=== PATIENT | female | born 1995 | race Hispanic/Latino ===

== ENCOUNTER 2020-04-05 16:11 | Emergency (ER) | payer OTHER ==
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
--- OUTSIDE RECORDS SUMMARY | 2020-04-05 16:14 | XMS REPORT | Clinical Summary ---
:1995 Author Organization [facility] Address [address] [place] [address] Care Team Providers Name Role Phone Asked, No Pcp Primary Care Provider Unavailable Allergies Active Allergy Reactions Severity Noted Date Comments Doxycycline Anaphylaxis High 01/26/2019 Numbs all extre mities Azithromycin Anaphylaxis High 01/26/2019 Medications Medication Sig Dispensed Refills Start End Date Status Date hydroxychloroquine TK 1 T PO BID 2 Active (PLAQUENIL) 200 mg 9 tablet brompheniramine-pseudo TAKE 2 0 0 Discontinued eph-DM 2-30-10 mg/5 mL TEASPOONS BY 9 19 (Therapy syrup MOUTH THREE complete d) TIMES DAILY NEEDED dextroamphetamine-amph TK 1 T PO QD 0 Discontinued etamine (ADDERALL) 20 9 19 (Therapy mg tablet completed) diclofenac (VOLTAREN) TK 1 T PO BID 0 03/29 Discontinued 75 MG EC tablet WC 9 19 (The rapy completed) amoxicillin-pot Take 1 tablet 0 04/15/20 Discontinued clavulanate by mouth 2 9 19 (Therap y (AUGMENTIN) 875-125 mg (two) times a completed) per tablet day. Active Problems Problem Noted Date Wrist tendonitis 01/26/2019 Encounters Date Type Specialty Care Team Description 05/26/2019 Office Visit Orthopedic Surgery Ravi Cancino Trigger finger, right index finger (Primary Dx); MD Carlyn Right wrist dean n; Right hand pain 04/27/2019 Office Visit Orthopedic Surgery Ravi Cancino Wrist te danielle Alcocer MD (Primary Dx) 04/15/2019 Surgery Orthopedic Surgery Ravi Cancino RIGHT WR IST MD Carlyn ARTHROSCOPY ECU DECOMPRESSION W ITH RECONSTRUCTION OF SHEATH 6TH EXTE NSOR DORSAL COMPARTM ENT AND ANY INDICATED PROCEDURES 04/15/2019 Anesthesia Event Orthopedic Surgery Michael Morris MD 04/15/2019 Hospital Encounter Orthopedic Surgery Ravi Cancino MD after 04/05/2019 Family History Medical History Relation Name Comments Alcohol abuse Father Hypertension Father Relation Name Status Comments Father Social History Tobacco Use Types Packs/Day Years Used Date Never Smoker Smokeless Tobacco: Never Used Alcohol Use Drinks/Week oz/Week Comments Yes occassionally, s ocially standard drinks Sex Assigned at Date Recorded Not on file Job Start Date Occupation Industry Not on file Not on file Not on file Travel History Travel Start Travel End No recent travel history available. Last Filed Vital Signs Vital Sign Reading Time Taken Comments Blood Pressure 102/61 04/15/2019 4:20 PM CDT Pulse 79 04/15/2019 4:20 PM CDT Temperature 36.7 C (98 F) 04/15/2019 4:50 PM CDT Respiratory Rate 16 04/15/2019 4:20 PM CDT Oxygen Saturation 100% 04/15/2019 4:20 PM CDT Inhaled Oxygen Concentration - - Weight 72 kg (158 lb 11.2 oz) 04/15/2019 11:15 AM CDT Height 160 cm (5' 3") 04/15/2019 11:15 AM CDT Body Mass Index 28.11 04/15/2019 11:15 AM CDT Plan of Treatment Health Maintenance Due Date Last Done Comments CERVICAL CANCER SCREENING 2015 INFLUENZA VACCINE 04/29/2020 Procedures Procedure Name Priority Date/Time Associated Comments Diagnosis XR WRIST 3+ VW RIGHT Routine 05/26/2019 1:11 Right wrist pain Results for this PM CDT procedure are i n the results section. NH INJECT TENDON Routine 05/26/2019 12:45 Trigger finger, Resu lts for this SHEATH/LIGAMENT PM CDT right index fing er procedure are in Right hand pain the results section. NH AN ELECTIVE Routine 04/15/2019 12:54 SUPRAGLOTTIC AIRWAY PM CDT Procedure Note - Francisco Carr CRNA - 04/15/2019 12:54 PM CDT Airway Date/Time: 04/15/2019 12:46 P M Performed by: Francisco Carr CRNA Authorized by: Kevin Morris MD Location: OR Urgency: Elective Difficult Airway: No Anesthesiologist: Michael Morris MD Resident/ETHYLBENZENE CONVERTER HELPER/AA: Wilner Carr CRNA Other Anesthesia Staff: Michael Vanegas Performed by: other anesthesia staff Preoxygenated with 100% O2: Yes C-spine Precautions Maintain ed Throughout: Yes Mask Ventilation: Not attem pted Final Airway Type: Supraglo ttic airway Final LMA: I-Gel LMA Size: 4 Number of Attempts at Approa ch: 1 ARTHROSCOPY, WRIST 04/15/2019 12:39 Oth specific joint PM CDT derangements of right wrist, NEC Disorder of ligament of right wrist POC , URINE Routine 04/15/2019 11:19 Res ults for this AM CDT procedure are i n the results section. after 04/05/2019 Results XR Wrist 3+ Vw Right (05/26/2019 1:11 PM CDT) Specimen Narrative Performed At This result has an attachment that is no t available. 3 views Rt wrist in good penetrance and quality with out any acute obvious [facility] fractures, dislocations or calcifications unless HPI s tates otherwise. Performing Organization Address City[facility]State[facility] Phone Number [facility] [address] [place] [address] Hand/Upper Extremity Injection/Arthrocentesis: R small finger, R small A1 (05/26/2019 12:45 PM CDT) Narrative Performed At Ravi Cancino MD 05/26/2019 4 :21 PM Hand/Upper Extremity Injection/Arthrocentesis: R small finger, R small A1 Date/Time: 05/26/2019 2:34 PM Consent given by: patient Supporting Documentation Indications: pain Procedure Details Condition: trigger finger Site: R small finger Location: - R small A1 Right side: Needle size: 25 G Approach: anterior Right small finger medications administe red: 1 mL lidocaine 10 mg/mL (1 %); 6 mg betamethasone acetate & sodium phosphate 6 mg/mL Patient tolerance: patient tolerated the procedure wel l with no immediate complications Injection Type: tendon sheath POC , urine (04/15/2019 11:19 AM CDT) Pathologist Sig nature test urine, POC Negative QC done Yes Specimen Urine after 04/05/2019
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
[2020-04-05] MEDS ORDERED: NA CHLORIDE 0.9% 1,000 ML ONE (19:54)
[2020-04-05 20:19] LABS: Absolute Lymphocytes (CBC) 2.6 K/uL (0.7-4.9); Basophils % 0.7 % (0-1.3); Lymphocytes % 33.1 % (15.3-44.8); MPV 9.5 fL (7.6-11.3); RBC Red Blood Cell Count 5.09 M/uL (3.86-4.86)
[2020-04-05 20:23] LABS: Urine Blood NEGATIVE (NEG); Urine Glucose NEGATIVE (NEG); Urine Protein NEGATIVE (NEG); Urine Specific Gravity >1.030 (1.005-1.030)
[2020-04-05 20:30] LABS: Albumin 4.2 g/dL (3.4-5.0); Bilirubin Total 0.3 mg/dL (0.2-1.0); Potassium 4.1 mmol/L (3.5-5.1); Protein, Total 8.1 g/dL (6.4-8.2)
[2020-04-05] MEDS ORDERED: DIPHENHYDRAMINE 50 MG/ML VIAL ONE (20:49)
[2020-04-05] MEDS ORDERED: KETOROLAC 30 MG/ML INJ ONE (20:49)
[2020-04-05] MEDS ORDERED: METOCLOPRAMIDE 10 MG/2mL INJ ONE (20:49)
--- NOTE | 2020-04-05 20:49 | RAD REPORT ---
EXAM DESCRIPTION: CT - Head Brain Wo Cont - 04/05/2020 8:28 pm CLINICAL HISTORY: HEADACHE COMPARISON: No comparisons TECHNIQUE: Axial 5 mm thick images of the head were obtained without IV contrast. All CT scans are performed using dose optimization technique as appropriate and may include automated exposure control or mA/KV adjustment according to patient size. FINDINGS: No intracranial hemorrhage, mass, edema or shift of mid-line structures. No acute infarcti on changes seen. No abnormal extra-axial fluid collections. Ventricles are narrow ball within normal limits. Basilar cisterns are still identifiable. Mastoid air cells and visualized portions of the paranasal sinuses are clear. No acute bony findings. IMPRESSION: Negative non-contrast CT head examination.
--- NOTE | 2020-04-05 23:15 | EDPHYS ---
Physician Documentation [facility] Name: Tammy Sanchez Age: 25 yrs Sex: Female : 1995 Arrival Date: 04/05/2020 Time: 16:13 Bed 8 Private MD: Cas Chaparro ED Physician Dewayne Abbasi HPI: 04/05 20:17 This 25 yrs old Female presents to ER via Ambulatory with complaints of janes Headache > 24hrs Old, Fever, Nausea/Vomiting/Diarrhea. 20:17 The patient complains of pain to the left side of the back of head, left occipital janes area, left base of the skull, right side of the back of head, right occipital area and right base of the skull. The patient describes the headache as aching, a pressure. Onset: The symptoms/episode began/occurred 3 day(s) ago. Associated signs and symptoms: Pertinent positives: nausea, diarrhea. Severity of symptoms: At its worst the pain was moderate, in the emergency department the pain is unchanged. Headache History: Denies prior headaches. The symptoms are alleviated by remaining still. The patient has not experienced similar symptoms in the past. 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 - Social history:: Smoking status: Patient denies any tobacco usage or history of. - Family history:: not pertinent. ROS: 20:17 Constitutional: Negative for fever, chills, and weight loss, Eyes: Negative for injury, janes pain, redness, and discharge, ENT: Negative for injury, pain, and discharge, Neck: Negative for injury, pain, and swelling, Cardiovascular: Negative for chest pain, palpitations, and edema, Respiratory: Negative for shortness of breath, cough, wheezing, and pleuritic chest pain, Back: Negative for injury and pain, : Negative for injury, bleeding, discharge, and swelling, MS/Extremity: Negative for injury and deformity, Skin: Negative for injury, rash, and discoloration, Psych: Negative for depression, anxiety, suicide ideation, homicidal ideation, and hallucinations, Allergy/Immunology: Negative for hives, rash, and allergies, Endocrine: Negative for neck swelling, polydipsia, polyuria, polyphagia, and marked weight changes, Hematologic/Lymphatic: Negative for swollen nodes, abnormal bleeding, and unusual bruising. 20:17 Abdomen/GI: Positive for abdominal pain, diarrhea, of the epigastric area. 20:17 Neuro: Positive for headache, weakness. Exam: 20:20 Constitutional: This is a well developed, well nourished patient who is awake, alert, janes and in no acute distress. Head/Face: Normocephalic, atraumatic. Eyes: Pupils equal round and reactive to light, extra-ocular motions intact. Lids and lashes normal. Conjunctiva and sclera are non-icteric and not injected. Cornea within normal limits. Periorbital areas with no swelling, redness, or edema. ENT: Nares patent. No nasal discharge, no septal abnormalities noted. Tympanic membranes are normal and external auditory canals are clear. Oropharynx with no redness, swelling, or masses, exudates, or evidence of obstruction, uvula midline. Mucous membranes moist. Neck: Trachea midline, no thyromegaly or masses palpated, and no cervical lymphadenopathy. Supple, full range of motion without nuchal rigidity, or vertebral point tenderness. No Meningismus. Chest/axilla: Normal chest wall appearance and motion. Nontender with no deformity. No lesions are appreciated. Cardiovascular: Regular rate and rhythm with a normal S1 and S2. No gallops, murmurs, or rubs. Normal PMI, no JVD. No pulse deficits. Respiratory: Lungs have equal breath sounds bilaterally, clear to auscultation and percussion. No rales, rhonchi or wheezes noted. No increased work of breathing, no retractions or nasal flaring. Back: No spinal tenderness. No costovertebral tenderness. Full range of motion. Skin: Warm, dry with normal turgor. Normal color with no rashes, no lesions, and no evidence of cellulitis. MS/ Extremity: Pulses equal, no cyanosis. Neurovascular intact. Full, normal range of motion. Neuro: Awake and alert, GCS 15, oriented to person, place, time, and situation. Cranial nerves II-XII grossly intact. Motor strength 5/5 in all extremities. Sensory grossly intact. Cerebellar exam normal. Normal gait. Psych: Awake, alert, with orientation to person, place and time. Behavior, mood, and affect are within normal limits. 20:20 Neck: External neck: is normal, no acute changes, C-spine: appears grossly normal, no acute changes, Thyroid: appears normal, no acute changes, Trachea: is midline with no obvious abnormalities, no acute changes, ROM/movement: is normal, no acute changes, Lymph nodes: no appreciated lymphadenopathy. 20:20 Abdomen/GI: Inspection: abdomen appears normal, Bowel sounds: normal, active, all quadrants, Palpation: mild abdominal tenderness, in the epigastric area, Liver: no appreciated palpable abnormalities, Hernia: not appreciated. Vital Signs: 16:31 BP 122 / 83; Pulse 86; Resp 16; Temp 98.3(TE); Pulse Ox 100% on R/A; Weight 74.84 kg; ss Height 5 ft. 3 in. (160.02 cm); Pain 5/10; 21:00 BP 121 / 75; Pulse 82; Resp 18; Pulse Ox 99% on R/A; wh 22:20 BP 122 / 70; Pulse 87; Resp 18; Temp 97.7; Pulse Ox 100% on R/A; sg 16:31 Body Mass Index 29.23 (74.84 kg, 160.02 cm) Demetris Coma Score: 21:16 Eye Response: spontaneous(4). Verbal Response: oriented(5). Motor Response: obeys [facility] commands(6). Total: 15. MDM: 19:29 Patient medically screened. [facility] 20:21 Data reviewed: vital signs, nurses notes, lab test result(s), radiologic studies. [facility] 21:16 Differential diagnosis: cluster headache, migraine, tension headache. 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 Counseling: I had a detailed discussion with the patient and/or guardian regarding: the historical points, exam findings, and any diagnostic results supporting the discharge/admit diagnosis, lab results, radiology results, the need for outpatient follow up, for definitive care, a neurologist. Medication response: 04/05 19:30 Order name: CBC with Diff; Complete Time: 21:14 [facility] 04/05 19:30 Order name: Comprehensive Metabolic Panel; Complete Time: 21:14 [facility] 04/05 19:30 Order name: Urine Culture [facility] 04/05 20:06 Order name: Urine Dipstick--Ancillary (enter results); Complete Time: 21:14 [facility] 04/05 20:06 Order name: Urine --Ancillary (enter results); Complete Time: 21:14 [facility] 04/05 20:17 Order name: Lipase [facility] 04/05 20:17 Order name: CT Head Brain wo Cont [facility] 04/05 20:17 Order name: Fecal Leukocyte Stain [facility] 04/05 20:17 Order name: Lipase ED[facility] 04/05 20:50 Order name: CT; Complete Time: 21:14 [facility] 04/05 19:30 Order name: Urine Dipstick-Ancillary (obtain specimen); Complete Time: 20:04 [facility] 04/05 19:30 Order name: Urine Test (obtain specimen); Complete Time: 20:04 [facility] Administered Medications: 20:07 Drug: NS 0.9% 1000 ml Route: IV; Rate: 1 bolus; Site: left antecubital; 22:32 Follow up: Response: No adverse reaction; IV Status: Completed infusion 20:41 Drug: TORadol 30 mg Route: IVP; Site: left antecubital; 22:32 Follow up: Response: No adverse reaction; Pain is decreased 20:43 Drug: Benadryl 25 mg Route: IVP; Site: left antecubital; 22:32 Follow up: Response: No adverse reaction 20:45 Drug: Reglan 10 mg Route: IVP; Site: left antecubital; 22:32 Follow up: Response: No adverse reaction; Pain is decreased 22:25 Drug: DiFLUcan 200 mg Route: PO; 22:32 Follow up: Response: No adverse reaction Disposition: 04/05/20 21:49 Discharged to Home. Impression: Headache, Diarrhea, unspecified. - Condition is Stable. - Discharge Instructions: Food Choices to Help Relieve Diarrhea, Adult, Diarrhea, Adult, Migraine Headache, Diarrhea, Adult, [id number], Migraine Headache, Ejqm-hc-[id number]. - Prescriptions for Fioricet with Codeine 50- 325-40-30 mg Oral capsule - take 1 capsule by ORAL route every 4 hours as needed not to exceed 6 capsules per 24hrs; 20 capsule. Zofran 4 mg Oral Tablet - take 1 tablet by ORAL route every 12 hours As needed; 20 tablet. Fluconazole 200 mg Oral Tablet - take 1 tablet by ORAL route once daily take next wed as needed; 1 tablet. - Work release form, Medication Reconciliation Form, Thank You Letter, Antibiotic Education, Prescription Opioid Use form. - Follow up: Cas Chaparro; When: 2 - 3 days; Reason: Recheck today's complaints, Continuance of care, Re-evaluation by your physician. - Problem is new. - Symptoms have improved. 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 Impression: Headache; Diarrhea, unspecified. sg Condition is Stable. Discharge Instructions: Food Choices to Help Relieve Diarrhea, Adult, Diarrhea, Adult, Migraine Headache, Diarrhea, Adult, Newf-sk-Ajkc, Migraine Headache, Yxjf-[id number]-Rdhf. Prescriptions for Fioricet with Codeine [id number] mg Oral capsule - take 1 capsule by ORAL route every 4 hours as needed not to exceed 6 capsules per 24hrs; 20 capsule, Zofran 4 mg Oral Tablet - take 1 tablet by ORAL route every 12 hours As needed; 20 tablet. and Forms are Medication Reconciliation Form, Thank You Letter, Antibiotic Education, Prescription Opioid Use. Follow up: Cas Chaparro; When: 2 - 3 days; Reason: Recheck today's complaints, Continuance of care, Re-evaluation by your physician. Problem is new. Symptoms have improved. [facility] 22:33 22:21 04/05/2020 21:49 Discharged to Home. Impression: Headache; Diarrhea, unspecified. wh Condition is Stable. Discharge Instructions: Food Choices to Help Relieve Diarrhea, Adult, Diarrhea, Adult, Migraine Headache, Diarrhea, Adult, Icca-cq-Xsgl, Migraine Headache, Zqgj-qg-Ajei. Prescriptions for Fioricet with Codeine [id number] mg Oral capsule - take 1 capsule by ORAL route every 4 hours as needed not to exceed 6 capsules per 24hrs; 20 capsule, Zofran 4 mg Oral Tablet - take 1 tablet by ORAL route every 12 hours As needed; 20 tablet. and Forms are Medication Reconciliation Form, Thank You Letter, Antibiotic Education, Prescription Opioid Use, Work release form. Follow up: Cas Chaparro; When: 2 - 3 days; Reason: Recheck today's complaints, Continuance of care, Re-evaluation by your physician. Problem is new. Symptoms have improved. sg
--- NOTE | 2020-04-05 23:15 | ER ---
Nurse's Notes [facility] Name: Tammy Sanchez Age: 25 yrs Sex: Female : 1995 Arrival Date: 04/05/2020 Time: 16:13 Bed 8 Private MD: Cas Chaparro Diagnosis: Headache;Diarrhea, unspecified Presentation: 04/05 16:31 Chief complaint: Patient states: headache, N/V/D and low grade fever that began 4 days ss ago. Coronavirus screen: Patient denies a cough. Patient denies shortness of breath or difficulty breathing. Patient reports a measured and/or subjective temperature greater than 100.4F. Patient denies travel on a cruise ship or to a country the [facility] currently lists as an affected area. Patient reports contact with known and/or suspected case of COVID-19. Ebola Screen: Patient denies exposure to infectious person. Patient denies travel to an Ebola-affected area in the 21 days before illness onset. Initial Sepsis Screen: Does the patient meet any 2 criteria? No. Patient's initial sepsis screen is negative. Does the patient have a suspected source of infection? No. Patient's initial sepsis screen is negative. Risk Assessment: Do you want to hurt yourself or someone else? Patient reports no desire to harm self or others. Onset of symptoms was April 01, 2020. 16:31 Method Of Arrival: Ambulatory ss 16:31 Acuity: ZAC 3 ss Triage Assessment: 20:00 Headache History: The patient has had previous headaches and this one is similar to wh previous episodes. General: Appears in no apparent distress. Behavior is calm, cooperative, appropriate for age. 20:00 Pain: Pain currently is 8 out of 10 on a pain scale. Pain began 2-3 days ago. Also wh complains of nausea. 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 - Social history:: Smoking status: Patient denies any tobacco usage or history of. - Family history:: not pertinent. Screenin:00 Abuse screen: Denies threats or abuse. Denies injuries from another. Nutritional wh screening: No deficits noted. Tuberculosis screening: No symptoms or risk factors identified. Fall Risk None identified. Assessment: 20:00 General: Appears in no apparent distress. Behavior is calm, cooperative, appropriate wh for age. Pain: Complains of pain in right base of the skull and right occipital area and right side of the back of head and left base of the skull and left occipital area and left side of the back of head Pain does not radiate. Pain currently is 8 out of 10 on a pain scale. Pain began 2-3 days ago. Neuro: Level of Consciousness is awake, alert, obeys commands, Oriented to person, place, time, situation, Appropriate for age. Neuro: Reports headache. Cardiovascular: Capillary refill < 3 seconds. Respiratory: Airway is patent Respiratory effort is even, unlabored, Respiratory pattern is regular, symmetrical. GI: Abdomen is flat, non-distended. : No signs and/or symptoms were reported regarding the genitourinary system. EENT: No signs and/or symptoms were reported regarding the EENT system. Derm: Skin is intact, is healthy with good turgor, Skin is pink, warm \T\ dry. normal. Musculoskeletal: Circulation, motion, and sensation intact. 21:10 Reassessment: Patient appears in no apparent distress at this time. No changes from previously documented assessment. Patient and/or family updated on plan of care and expected duration. Pain level reassessed. Patient is alert, oriented x 3, equal unlabored respirations, skin warm/dry/pink. 22:15 Reassessment: Patient appears in no apparent distress at this time. No changes from previously documented assessment. Patient and/or family updated on plan of care and expected duration. Pain level reassessed. Patient is alert, oriented x 3, equal unlabored respirations, skin warm/dry/pink. Patient states feeling better. Patient states symptoms have improved. 22:20 Reassessment: Patient appears in no apparent distress at this time. Patient and/or sg family updated on plan of care and expected duration. Pain level reassessed. Patient is alert, oriented x 3, equal unlabored respirations, skin warm/dry/pink. pt provided dc instructions by , pt awaiting transportation to home at this time. Vital Signs: 16:31 BP 122 / 83; Pulse 86; Resp 16; Temp 98.3(TE); Pulse Ox 100% on R/A; Weight 74.84 kg; ss Height 5 ft. 3 in. (160.02 cm); Pain 5/10; 21:00 BP 121 / 75; Pulse 82; Resp 18; Pulse Ox 99% on R/A; wh 22:20 BP 122 / 70; Pulse 87; Resp 18; Temp 97.7; Pulse Ox 100% on R/A; sg 16:31 Body Mass Index 29.23 (74.84 kg, 160.02 cm) ss [place] Coma Score: 21:16 Eye Response: spontaneous(4). Verbal Response: oriented(5). Motor Response: obeys janes commands(6). Total: 15. ED Course: 16:13 Patient arrived in ED. ag5 16:14 Cas Chaparro MD is Private Physician. ag5 16:33 Triage completed. ss 16:33 Arm band placed on right wrist. ss 19:29 Dewayne Abbasi MD is Attending Physician. janes 19:38 Mackenzie Jin is Primary Nurse. wh 19:50 Missed attempt(s): 20 gauge in right antecubital area. Bleeding controlled, band aid wh applied, catheter tip intact. 20:00 Patient has correct armband on for positive identification. Bed in low position. Call wh light in reach. Side rails up X 1. Pulse ox on. NIBP on. 20:08 Inserted saline lock: 20 gauge in left antecubital area, using aseptic technique. oe 21:49 Cas Chaparro MD is Referral Physician. janes 22:24 Primary Nurse role handed off by Mackenzie Jin lp1 22:29 No provider procedures requiring assistance completed. wh 22:30 IV discontinued, intact, bleeding controlled, No redness/swelling at site. Pressure wh dressing applied. 22:32 Mackenzie Jin is Primary Nurse. wh Administered Medications: 20:07 Drug: NS 0.9% 1000 ml Route: IV; Rate: 1 bolus; Site: left antecubital; 22:32 Follow up: Response: No adverse reaction; IV Status: Completed infusion wh 20:41 Drug: TORadol 30 mg Route: IVP; Site: left antecubital; 22:32 Follow up: Response: No adverse reaction; Pain is decreased 20:43 Drug: Benadryl 25 mg Route: IVP; Site: left antecubital; 22:32 Follow up: Response: No adverse reaction 20:45 Drug: Reglan 10 mg Route: IVP; Site: left antecubital; 22:32 Follow up: Response: No adverse reaction; Pain is decreased 22:25 Drug: DiFLUcan 200 mg Route: PO; 22:32 Follow up: Response: No adverse reaction Outcome: 21:49 Discharge ordered by . janes 22:20 Discharged to home ambulatory, with family. 22:20 Condition: good 22:20 Discharge instructions given to patient, Instructed on discharge instructions, follow up and referral plans. medication usage, safety practices, Demonstrated understanding of instructions, follow-up care, medications, Prescriptions given X 2. 22:21 Patient left the ED. 22:33 Patient left the ED. Signatures: Deniz Barreto RN RN Dewayne Bonilla MD MD cha Smirch, Shelby, RN RN Ann Fulton RN RN lp1 Trevon Rasmussen Winsy Sean Larios ag5 Corrections: (The following items were deleted from the chart) 22:30 20:20 IV discontinued, intact, bleeding controlled, No redness/swelling at site. Pressure dressing applied,
[2020-04-06 00:30] VITALS: BP 122/70; TEMP 97.7; O2SAT 100
== END 2020-04-05 22:33 | disposition home or self-care (01) ==
LOC: ER 16:11
DX: R19.7 Diarrhea, unspecified (principal); Z88.1 Allergy status to other antibiotic agents
CPT/HCPCS: 96361; 87088; 85025; 87086; 36415; 81025; 81003; 83690; 80053; 70450; 96375; 96374; 99284; J2765; J1200; J7030